=== PATIENT | male | born 1945 | race Caucasian/White ===

== ENCOUNTER 2018-05-27 18:45 | Emergency (ER) | payer BC ==
[2018-05-27 18:50] VITALS: BP 140/70; TEMP 98; BMI 25.8
--- NOTE | 2018-05-27 18:56 | PDOC ---
History of Present Illness - General Chief Complaint: Injury Stated Complaint: FALL Time Seen by Provider: 05/27/18 18:56 - History of Present Illness Initial Comments: 73yo M with PMH of HTN, HLD, aortic aneurysm (3.2cm), R. hip replacement, spinal stenosis presenting after a fall. Patient states he was in the parking lot of [employer] store when he walked on what he thought was water but was actually ice. He says, my legs were up in the air. Patient landed on the left side of his back, his left elbow and left hand and has abrasions on his left hand. Denies loss of consciousness, nausea, or vomiting. Denies urinary or fecal incontinence during/after the episode. No history of seizures or arrhythmia. Takes 81mg aspirin every day. He is unsure when he received his last tetanus shot, though believes it was within the last ten years when he cut his hand on glass and was treated at [facility]. Denies fever, chills, shortness of breath, or chest pain. Past History - Past Medical History Allergies/Adverse Reactions: Allergies Allergy/AdvReac Type Severity Reaction Status Date / Time No Known Drug Allergies Allergy Verified 05/27/18 19:10 Home Medications: Ambulatory Orders Aspirin [ASA -] 81 mg PO DAILY 05/27/18 Nebivolol HCl [Bystolic] 5 mg PO DAILY 05/27/18 Rosuvastatin Calcium [Crestor] 5 mg PO DAILY 05/27/18 Anemia: No Asthma: No Cancer: Yes (basal cell ca removed from nose) Cardiac Disorders: No CVA: No COPD: No CHF: No Dementia: No Diabetes: No GI Disorders: No Disorders: Yes (kidney stones) HTN: No Hypercholesterolemia: Yes (pacemaker) Liver Disease: No Seizures: No Thyroid Disease: No - Surgical History Abdominal Surgery: No Appendectomy: No Cardiac Surgery: No Cholecystectomy: No Lung Surgery: No Neurologic Surgery: No Orthopedic Surgery: No - Suicide/Smoking/Psychosocial Hx Smoking History: Never smoked Have you smoked in the past 12 months: No Information on smoking cessation initiated: No Hx Alcohol Use: No Drug/Substance Use Hx: No Substance Use Type: None Hx Substance Use Treatment: No Review of Systems - Review of Systems Comments:: Constitutional: no fever, no chills HEENT: no throat pain, no dysphagia Cardiovascular: no chest pain, no palpitations Respiratory: no cough, no shortness of breath Gastrointestinal: no nausea, no vomiting Genitourinary: no dysuria, no frequency Musculoskeletal: +back pain, no arthralgia Skin: +abrasion, no itching Neurologic: no headache, no dizziness *Physical Exam - Vital Signs Last Vital Signs Temp Pulse Resp BP Pulse Ox 98 F 70 16 140/70 100 05/27/18 18:48 05/27/18 18:48 05/27/18 18:48 05/27/18 18:48 05/27/18 18:48 - Physical Exam Comments: General: Awake, alert, and fully oriented, in no acute distress Head: No signs of trauma Eyes: EOMI, sclera anicteric ENT: Moist mucus membranes Neck: Normal ROM, supple Lungs: Lungs clear, Normal breath sounds Cardio: Regular rhythm, S1 and S2 present Abdomen: Soft, nontender. No guarding, no rebound, no masses Extremities: Normal range of motion, Distal pulses present SKIN: minor abrasion present on left fifth knuckle, minor scrape present on lateral left shoulder; Otherwise, warm, dry, normal turgor Neurologic: Cranial nerves II through XII intact. Normal speech, sensation, strength, coordination, and gait. Back: No midline tenderness, Tender to palpation overlying 8-10th ribs, no step- offs/deformities/fluctuance; no overlying wound or lesion; negative straight leg test bilaterally Moderate Sedation - Procedure Monitoring Vital Signs: Procedure Monitoring Vital Signs Temperature 98 F 05/27/18 18:48 Pulse Rate 70 05/27/18 18:48 Respiratory Rate 16 05/27/18 18:48 Blood Pressure 140/70 05/27/18 18:48 O2 Sat by Pulse Oximetry (%) 100 05/27/18 18:48 Medical Decision Making - Medical Decision Making 73yo M with PMH of HTN, HLD, aortic aneurysm (3.2cm), R. hip replacement, spinal stenosis presenting after a fall. DDX including but not limited to mechanical fall, syncope, seizure Could not see any records of tetanus vaccination per chart review, tetanus ordered 05/27/18 19:43 X-ray of the left hand, 3 views The alignment is satisfactory . No gross bone or soft tissue abnormality seen. No gross fracture or dislocation is identified. Impression: No gross bone or soft tissue abnormality seen. X-ray of the left elbow, 3 views The alignment is satisfactory . 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 No gross fracture or dislocation is identified. No gross joint effusion is identified. Impression: Mild osteoarthritic changes without evidence evidence of an acute fracture or dislocation X-ray of the left forearm, 2 views The alignment is satisfactory . No gross bone or soft tissue abnormality seen. No gross fracture or dislocation is identified. Impression: No gross bone or soft tissue abnormality seen. Left rib views A frontal view of the chest and 3 views of the left rib cage were submitted for evaluation. Compared to prior chest x-ray dated 08/13/2013 The cardiac silhouette is within normal limits in size. There are mild bilateral perihilar increased lung markings that made on the basis of mild COPD changes. No gross focal infiltrates are identified. Mediastinum and visualized osseous structures appear intact. In particular, no gross left rib fracture is identified. No pneumothorax or pleural effusion are identified, bilaterally. Impression: No gross left rib fracture is identified. History and physical consistent with mechanical fall No fractures, dislocations, or breaks identified on radiographs. Plan to discharge with incentive spirometer 05/27/18 20:22 *DC/Admit/Observation/Transfer Diagnosis at time of Disposition: Fall - Discharge Dispostion Disposition: HOME Condition at time of disposition: Stable - Referrals - Patient Instructions Printed Discharge Instructions: How to Use an Incentive Spirometer Additional Instructions: You came into the ED after a fall. We performed x rays which did not show any fractures. Follow-up with your primary care doctor in 5-7 days to discuss this ED visit and to evaluate your progress. You can expect to be tender for the next 2 weeks. You can take [id number] tylenol for pain. Follow the instructions on the medication bottle. Boostrix (Tdap) given today, 05/27/18. Keep note of this date for future reference. Use the incentive spirometer regularly, about ten times per hour, to help prevent a lung infection. Please review the provided handout. Immediate medical attention is required if you experience: Increased pain or swelling, signs of infection including fever and chills, nausea and vomiting, lightheadedness, inability to breathe or very rapid breathing, rapid irregular heartbeat, chest pain. If you think you are having an emergency, call for emergency medical services or present to the emergency department right away - Post Discharge Activity
[2018-05-27] MEDS ORDERED: BACITRACIN 15 GM TUBE TOPICAL OINTMENT TP ONE (19:25)
[2018-05-27] MEDS ORDERED: BACITRACIN 0.9 GM PACKET ONE (19:27)
[2018-05-27] MEDS ORDERED: DIPHTH,PERTUSS(ACELL),TET 0.5 ML DISP.SYRIN IM ONE ×2 (19:34→19:53)
--- NOTE | 2018-05-27 19:50 | PDOC ---
Attending Attestation - HPI HPI: 05/27/18 19:56 The patient is a 73 year old male, with a significant past medical history of HTN, HLD, spinal stenosis, and ~3.1 cm aortic aneurysm, who presents to the emergency department s/p mechanical slip and fall on black ice onto left sided back, left elbow, and left hand. He denies LOC or head/neck trauma. Patient denies any change in strength or sensation. He denies any recent fevers, chills, headache or dizziness. He denies any recent nausea, vomit, diarrhea or constipation. He denies any recent chest pain or shortness of breath. He denies any recent dysuria, frequency, urgency or hematuria. Allergies: NKDA - Physicial Exam PE: 05/27/18 19:56 GENERAL: Well-appearing, well-nourished. No apparent distress. HEENT: No new cervical midline tenderness. Normocephalic, atraumatic. PERRL, EOM intact. CARDIOVASCULAR: Normal S1, S2. Regular rate and rhythm. PULMONARY: Clear to auscultation bilaterally. ABDOMEN: Soft, non-distended. Nontender. No rebound. No guarding. MUSCULOSKELETAL: +Left posterior rib cage tenderness. EXTREMITIES: Left pinky abrasion. Normal ROM in all four extremities. No gross deformities. SKIN: Warm, dry. No rash NEUROLOGICAL: Alert, awake, appropriate. Cranial nerves 2-12 intact. Gait is normal without ataxia. No focal neurological deficits. <Madhavi Mustafa - Last Filed: 05/27/18 20:36> - Resident Resident Name: Amanda Shelton - ED Attending Attestation I have performed the following: I have examined & evaluated the patient, The case was reviewed & discussed with the resident, I agree w/resident's findings & plan, Exceptions are as noted - Medical Decision Making 05/27/18 20:41 no resp distress,pt is ambulatory with ease radiographs no rib fractures appreciated no extremity fractures imp ribcage contusion pt placed on pain meds and given an incentive spiromter, d/c home <Evangelina Ulrich - Last Filed: 05/27/18 20:47> Attestations - Attestations 05/27/18 19:59 Documentation prepared by Madhavi Mustafa, acting as medical file clerk for Evangelina Ulrich MD. <Madhavi Mustafa - Last Filed: 05/27/18 20:36>
[2018-05-27] MEDS ORDERED: ACETAMINOPHEN 325 MG TABLET (FP) PO ONE (19:57)
[2018-05-27] MEDS ORDERED: ACETAMINOPHEN 325 MG TABLET (FP) ONE (20:05)
[2018-05-27 20:42] VITALS: PULSE 68
== END 2018-05-27 20:42 | disposition home or self-care (01) ==
LOC: JER 18:45
DX: S20.222A Contusion of left back wall of thorax, initial encounter (principal); W00.0XXA Fall on same level due to ice and snow, initial encounter; Y93.89 Activity, other specified; Y92.481 Parking lot as the place of occurrence of the external cause; Y99.8 Other external cause status; I10 Essential (primary) hypertension; E78.5 Hyperlipidemia, unspecified; M48.00 Spinal stenosis, site unspecified; I71.9 Aortic aneurysm of unspecified site, without rupture; Z96.641 Presence of right artificial hip joint
CPT/HCPCS: 71101-TC-LT-FY; 73070-TC-LT-FY; 73090-TC-LT-FY; 73130-TC-LT-FY; 90715; 99282-25

== ENCOUNTER 2023-03-28 16:32 | Emergency (ER) | payer OTHER, BC ==
[2023-03-28 16:48] VITALS: BP 155/87; PULSE 68; RESP 18; TEMP 97.8; BMI 26.9
== END 2023-03-28 19:40 | disposition home or self-care (01) ==
LOC: FER 16:32
DX: S00.83XA Contusion of other part of head, initial encounter (principal); S00.31XA Abrasion of nose, initial encounter; W01.0XXA Fall on same level from slipping, tripping and stumbling without subsequent striking against object, initial encounter; Y93.01 Activity, walking, marching and hiking
CPT/HCPCS: 70450-TC; 70486-TC; 72125-TC; 99284-25